=== PATIENT | male | born 1955 | race African-American/Black ===

== ENCOUNTER 2017-09-21 09:33 | Day surgery (SDC) | payer OTHER ==
[2017-09-21] MEDS ORDERED: EPOETIN ALFA 40,000 UNIT/1 ML VIAL SQ ONE (11:45)
[2017-09-21] MEDS ORDERED: IRON SUCROSE INJECTION 100 MG in SODIUM CHLORIDE 100 ML IVPB ONE (12:00)
[2017-09-21 18:13] VITALS: BP 138/82; PULSE 64; TEMP 97.7
== END 2017-09-21 22:51 | disposition home or self-care (01) ==
LOC: JONCNONCHE 09:33 → J7W 11:07 → JONCNONCHE 22:51
PROVIDERS: ATTEND Internal Medicine Hematology & Oncology
DX: D50.9 Iron deficiency anemia, unspecified (principal)
CPT/HCPCS: 96365; J1756

== ENCOUNTER 2018-08-22 09:23 | Day surgery (SDC) | payer OTHER ==
[2018-08-12 17:35] VITALS: BMI 45.1
[2018-08-22 09:57] LABS: BASO % 1.4 % (0-2.0); HEMOGLOBIN 12.1 GM/dL (11.7-16.9); LYMPH % 25.1 % (8-40); MCH 31.4 pg (25.7-33.7); MCHC 34.6 g/dl (32.0-35.9); MEAN CELL VOLUME 90.7 fl (80-96); MEAN PLT VOLUME 8.1 fl (7.5-11.1); MONO % 9.2 % (3.8-10.2); NEUT % 61.3 % (42.8-82.8); PLATELET COUNT 169 K/MM3 (134-434); RBC 3.85 M/mm3 (4.00-5.60); RDW 16.7 % (11.9-15.9); WHITE BLOOD COUNT 6.2 K/mm3 (4.0-10.0)
[2018-08-22 10:25] LABS: INR 1.06 (0.83-1.09); PROTHROMBIN TIME (PATIENT) 12.5 SEC (9.7-13.0)
[2018-08-22 14:41] VITALS: BP 126/75; PULSE 63; TEMP 98.1
--- NOTE | 2018-08-29 17:27 | PATH ---
Surgical Pathology Report Patient Name: TRELL HUMMEL Med. Rec. #: [id number] /Age/Gender: 1955 (Age: 62) / M Account: [id number] Location: [facility] SURGICAL Taken: 08/22/2018 Received: 08/22/2018 Reported: 08/29/2018 Physicians: Florian Wilkins M.D. Specimen(s) Received LEFT LYMPH NODE TISSUE Clinical History 62-year-old male with history of CKD and large bilateral inguinal PET positive lymph node Final Diagnosis LYMPH NODE, LEFT, CORE BIOPSY: DENSE FIBROUS TISSUE WITH LYMPHOID INFILTRATE. NO EVIDENCE OF LYMPHOMA. SEE COMMENT. Comment: H&E stained section shows dense fibrous tissue with focal lymphoid infiltrate possibly representing parts of lymph node. Lymphocytes are mostly small in size. Hodgkin cells are not seen. Immunostains show relatively defined B and T-cells. Germinal centers are negative for BCL-2. CD30 shows rare immunoblasts. Plasma cells show no overt monoclonality. There is no evidence of lymphoma observed. Flow cytometric analysis performed at outside institution reportedly showed no clonal B or atypical T cell population. Given the limited sampling clinicopathologic correlation is recommended. Concurrent lymphoproliferative Flow Panel performed at [facility] laboratory shows a paucicellular specimen with no clonal B-cell or atypical T-cell population detected ([id number]). This case was sent to Dr. Surendra Hanna from [facility], [place], [place] ([id number]) the diagnosis above reflects his opinion. See [facility] (Specimen #: [id number]) and [facility] ([id number]) for additional details. Electronically Signed Venita Sloan M.D. Gross Description Received in formalin labeled "left lymph node tissue," are 5 santamaria-brown, cylindrical portions of soft tissue ranging from 0.4-0.8 cm in length and averaging 0.1 cm in diameter. The specimens are submitted in toto in one cassette. There is additional tissue received in RPMI solution which is sent for flow cytometry. DL/08/22/2018 saudi/08/22/2018
== END 2018-08-22 14:55 | disposition home or self-care (01) ==
LOC: JASU-SURG 09:23
PROVIDERS: ATTEND Internal Medicine Hematology & Oncology
PROC: 07BJ3ZX Excision of Left Inguinal Lymphatic, Percutaneous Approach, Diagnostic (ICD-10-PCS; principal; 2018-08-22)
DX: R59.0 Localized enlarged lymph nodes (principal)
CPT/HCPCS: 36415; 76942-TC; 85025; 85610; 87899; 88305-TC

== ENCOUNTER 2020-10-14 01:23 | Emergency (ER) | payer OTHER ==
[2020-10-14 01:48] VITALS: PULSE 91; BMI 44.4
[2020-10-14] MEDS ORDERED: SODIUM CHLORIDE IV ONE (02:12)
[2020-10-14] MEDS ORDERED: LACTATED RINGERS SOLUTION 1000 ML INFUS.BAG IV ONE ×2 (02:21→06:34)
[2020-10-14] MEDS ORDERED: VANCOMYCIN HCL 1,500 MG in DEXTROSE 5%-WATER - 500 ML IVPB ONE (02:22)
[2020-10-14] MEDS ORDERED: ACETAMINOPHEN 1000 MG/100 ML VIAL (NON FORMULARY) IVPB ONE (02:24)
[2020-10-14] MEDS ORDERED: PIPERACILLIN/TAZOB 4.5 GM 4.5 GM in DEXTROSE 5%-WATER 100 ML IVPB ONE (02:24)
[2020-10-14] MEDS ORDERED: VANCOMYCIN PREMIX 1.5 GM 1,500 MG/300 ML BAG IVPB ONE (03:02)
[2020-10-14] MEDS ORDERED: PIPERACILLIN/TAZOB 4.5 GM 4.5 GM/100 ML BAG IVPB ONE (03:03)
[2020-10-14] MEDS ORDERED: ACETAMINOPHEN INJECTION 100 ML IVPB ONE (03:03)
[2020-10-14 03:04] LABS: BASO % 0.4 % (0-2.0); EOS % 0.1 % (0-4.5); HEMATOCRIT 32.6 % (35.4-49); HEMOGLOBIN 10.8 GM/dL (11.7-16.9); LYMPH % 3.9 % (8-40); MCH 31.7 pg (25.7-33.7); MCHC 33.3 g/dl (32.0-35.9); MEAN CELL VOLUME 95.1 fl (80-96); MEAN PLT VOLUME 9.3 fl (7.5-11.1); MONO % 10.7 % (3.8-10.2); NEUT % 84.9 % (42.8-82.8); PLATELET COUNT 226 K/MM3 (134-434); RBC 3.42 M/mm3 (4.00-5.60); RDW 14.5 % (11.9-15.9); WHITE BLOOD COUNT 13.3 K/mm3 (4.0-10.0)
[2020-10-14 03:10] LABS: INR 1.27 (0.83-1.09); PROTHROMBIN TIME (PATIENT) 15.3 SEC (9.7-13.0)
[2020-10-14 03:13] LABS: ACTIVATED PTT 31.3 SECONDS (25.2-36.5)
[2020-10-14 03:23] LABS: CHLORIDE 102 mmol/L (98-107); POTASSIUM 3.9 mmol/L (3.5-5.1); SODIUM 139 mmol/L (136-145)
[2020-10-14 03:25] LABS: CALCIUM 8.9 mg/dL (8.5-10.1)
[2020-10-14 03:26] LABS: ALBUMIN 2.9 g/dl (3.4-5.0); ANION GAP 8 MMOL/L (8-16); BLOOD UREA NITROGEN 33.6 mg/dL (7-18); CO2 29 mmol/L (21-32); GLUCOSE,RANDOM 108 mg/dL (74-106)
[2020-10-14 03:29] LABS: CREATININE 2.1 mg/dL (0.55-1.3); SGOT/AST 36 U/L (15-37); SGPT/ALT 27 U/L (13-61)
[2020-10-14 03:30] LABS: BILIRUBIN,TOTAL 1.4 mg/dL (0.2-1)
[2020-10-14 03:32] LABS: ALK PHOS 112 U/L (45-117)
[2020-10-14 06:48] VITALS: BP 122/81; TEMP 98.9
== END 2020-10-14 07:40 | disposition short-term general hospital (02) ==
LOC: JER 01:23
PROC: 3E0333Z Introduction of Anti-inflammatory into Peripheral Vein, Percutaneous Approach (ICD-10-PCS; principal; 2020-10-14)
PROC: 3E03329 Introduction of Other Anti-infective into Peripheral Vein, Percutaneous Approach (ICD-10-PCS; 2020-10-14)
DX: M00.9 Pyogenic arthritis, unspecified (principal)
CPT/HCPCS: 36415; 71045-TC-FY; 73562-TC-LT-FY; 73700-TC-RT; 80053; 82550; 82553; 83605; 84484; 85025; 85610; 85730; 87040; 93005; 93010; 96374; 96375; 99285-25; J0131